=== PATIENT | female | born 1990 | race American Indian/Alaskan Native ===

== ENCOUNTER 2019-07-14 09:33 | Inpatient (IN) | payer MEDICAID ==
[2019-07-14] MEDS ORDERED: LACTATED RINGERS 1,000 ML IV ONE (10:00)
[2019-07-14] MEDS ORDERED: TYLENOL PO ONE (12:07)
[2019-07-14 12:39] LABS: Bacteria,Urine 1+ /HPF (Negative); Bilirubin,Urine NEG (Negative); Blood,Urine SM (Negative); Color,Urine Yellow (Yellow); Protein,Urine <15 mg/dL mg/dL (Negative); Urobilinogen,Urine < 2.0 mg/dL (<2.0)
[2019-07-14] MEDS ORDERED: ZOFRAN IV PRN (13:52)
[2019-07-14] MEDS ORDERED: MYLICON PO PRN (13:52)
[2019-07-14] MEDS ORDERED: AMPICILLIN/NS 2 GM/100 ML 2 GM/100 ML BAG IV ONE (13:52)
[2019-07-14] MEDS ORDERED: AMBIEN PO PRN (13:52)
[2019-07-14] MEDS ORDERED: MILK OF MAGNESIA PO PRN (13:52)
[2019-07-14] MEDS ORDERED: TYLENOL PO PRN ×2 (13:52→14:04)
[2019-07-14] MEDS ORDERED: COLACE PO PRN ×2 (13:52→14:04)
[2019-07-14] MEDS ORDERED: SENOKOT S PO PRN (13:52)
--- NOTE | 2019-07-14 13:59 | History and Physical Report ---
History of Present Illness Date of examination: 07/14/19 Chief complaint: Back pains History of present illness: Pt is a 29yo BF EDC 08/26/19; EGA 33 6/7 weeks presented to [facility] complainin g of back pains. Uterine contractions were not originally picked up on the monitor, but she was having occasional decelerations with a NR tracing. BPP was 8/10. She received care at [facility] since 13 weeks and co-managed by [facility] for Chronic hypertension - on Labetolol 200mg BID, Shortened cervix - on Progesterone 200mg and history of DVT - on Lovenox 40mg. records are available but GBS is unknown. Past History Past Medical History: hypertension Past Surgical History: no surgical history Family/Genetic History: none Social history: no significant social history, single - Obstetrical History Expected Date of Delivery: 08/26/19 Actual Gestation: 33 Week(s) 6 Day(s) : 4 Medications and Allergies Allergies Allergy/AdvReac Type Severity Reaction Status Date / Time No Known Allergies Allergy Verified 07/14/19 09:37 Home Medications Medication Instructions Recorded Confirmed Last Taken Type Labetalol [Labetalol 200mg TAB] 200 mg PO BID 07/14/19 07/14/19 07/14/19 07:30 History 1 Progesterone, Micronized 1 cap VG HS 07/14/19 07/14/19 07/13/19 21:00 History [Progesterone] 1 Active Meds: Active Medications Acetaminophen (Tylenol) 650 mg PO Q4H PRN PRN Reason: Pain MILD(1-3)/Fever >100.5/WING Betamethasone Acet/Betameth SodPhos (Celestone Soluspan) 12 mg IM Q24HR AURELIO Stop: 07/15/19 10:01 Docusate Sodium (Colace) 100 mg PO Q12H PRN PRN Reason: Constipation Lactated Ringer's (Lactated Ringers) 1,000 mls @ 125 mls/hr IV DIRECT AURELIO Ampicillin Sodium (Ampicillin/Ns 1 Gm/50 Ml) 1 gm in 50 mls @ 100 mls/hr IV Q4HR AURELIO; Protocol Ampicillin Sodium (Ampicillin/Ns 2 Gm/100 Ml) 2 gm in 100 mls @ 100 mls/hr IV ONCE ONE; Protocol Stop: 07/14/19 14:51 Magnesium Hydroxide (Milk Of Magnesia) 30 ml PO QHS PRN PRN Reason: Laxative Effect Multivitamins/Iron/Calcium ( Vitamin) 1 each PO QDAY AURELIO Ondansetron HCl (Zofran) 4 mg IV Q6H PRN PRN Reason: Nausea And Vomiting Senna/Docusate Sodium (Senokot S) 2 tab PO Q12H PRN PRN Reason: Laxative Effect Simethicone (Mylicon) 80 mg PO Q6H PRN PRN Reason: Gas pain Zolpidem Tartrate (Ambien) 10 mg PO ONCE PRN PRN Reason: Sleep Review of Systems All systems: negative - Vital Signs Vital signs: Vital Signs Pulse Pulse Ox 104 H 99 07/14/19 09:55 07/14/19 09:55 Temp Pulse Resp BP Pulse Ox 99.4 F 96 H 18 126/66 99 07/14/19 10:05 07/14/19 11:53 07/14/19 10:05 07/14/19 10:02 07/14/19 11:53 - Physical Exam Breasts: Positive: deferred Cardiovascular: Regular rate Lungs: Positive: Clear to auscultation Abdomen: Positive: normal appearance - Obstetrical FHR: category 2 Uterine Contraction Monitor Mode: External Cervical Dilatation: 2.5 Cervical Effacement Percentage: 80 station: -2 Uterine Contraction Pattern: Regular Uterine Tone Measurement Phase: Contraction Uterine Contraction Intensity: Mild Results Result Diagrams: 07/14/19 17:27 All other labs normal. Ultrasound: report reviewed (BPP 8/8; JESUS 12.9) Assessment and Plan - Patient Problems (1) 33 weeks gestation of Onset Date: 07/14/19 Current Visit: Yes Status: Acute Plan to address problem: A: IUP @ 33 6/7 weeks in labor labor Chronic hypertension H/O DVT P: Admit to L&D for IV hydration, IV Magnesium sulfate, Steroids and IV Ampicillin Obtain [facility], NICU consult (2) contractions Onset Date: 07/14/19 Current Visit: Yes Status: Acute (3) PIH ( induced hypertension) Onset Date: 07/14/19 Current Visit: Yes Status: Acute Qualifiers: Trimester: third trimester Qualified Code(s): O13.3 - Gestational [-induced] hypertension without significant proteinuria, third trimester (4) History of DVT (deep vein thrombosis) Onset Date: 07/14/19 Current Visit: Yes Status: Chronic
[2019-07-14] MEDS ORDERED: MAGNESIUM SULFATE 4GM/100ML 4 GM/100 ML BAG IV ONE (14:02)
--- NOTE | 2019-07-14 14:22 | Ultrasound Report ---
ULTRASOUND BIOPHYSICAL PROFILE ULTRASOUND OB LIMITED INDICATION: Nonreactive heart tones TECHNIQUE: Transabdominal ultrasound imaging. COMPARISON: None FINDINGS: breathing movement = 2 Gross body movement = 2 tone = 2 Qualitative amniotic fluid volume = 2 Total biophysical score = 8/8 Amniotic fluid index is 12.9 cm. Presentation is cephalic. heart rate is 153 beats per minute. IMPRESSION: biophysical profile equals 8/8. Signer Name: Dimas Diallo Jr, MD Signed: 07/14/2019 2:18 PM Workstation Name: [id number]
[2019-07-14] MEDS: CELESTONE SOLUSPAN IM SCH (14:47)
[2019-07-14] MEDS ORDERED: MAGNESIUM SULFATE 40GM/1000ML 40 GM/1,000 ML BAG IV SCH (15:00)
[2019-07-14] MEDS: LACTATED RINGERS 1,000 ML IV SCH ×4 (15:08→23:23)
[2019-07-14 18:03] LABS: Basophils % (Auto) 0.1 % (0.0-1.8); Eosinophils % (Auto) 0.2 % (0.0-4.3); Hematocrit 26.6 % (30.3-42.9); Lymphocytes % (Auto) 9.2 % (13.4-35.0); Mean Corpuscular HGB Conc 34 % (30-34); Mean Corpuscular Volume 83 fl (79-97); Monocytes # (Auto) 0.2 K/mm3 (0.0-0.8); Monocytes % (Auto) 2.1 % (0.0-7.3); Platelet Count 277 K/mm3 (140-440); Red Cell Distribution Width 15.5 % (13.2-15.2)
[2019-07-14 18:21] LABS: Alanine Aminotransferase 9 units/L (7-56); Albumin 3.3 g/dL (3.9-5); BUN/Creatinine Ratio 13; Blood Urea Nitrogen 5 mg/dL (7-17); Calcium 8.9 mg/dL (8.4-10.2); Hemolysis Index 1
[2019-07-14] MEDS: AMPICILLIN/NS 1 GM/50 ML 1 GM/50 ML BAG IV SCH ×2 (19:31→23:23)
[2019-07-15] MEDS ORDERED: NARCAN 2 MG/2 ML IV PRN (00:03)
--- NOTE | 2019-07-15 00:03 | Anesthesia Consultation ---
Anesthesia Consult and Med Hx Date of service: 07/15/19 - Airway Anesthetic Teeth Evaluation: Good ROM Head & Neck: Adequate Mental/Hyoid Distance: Adequate Mallampati Class: Class II Intubation Access Assessment: Probably Good - Pulmonary Exam CTA: Yes - Cardiac Exam Cardiac Exam: RRR - Pre-Operative Health Status ASA Pre-Surgery Classification: ASA3 Proposed Anesthetic Plan: Epidural - Pulmonary Hx Asthma: No COPD: No Hx Pneumonia: No - Cardiovascular System Hx Hypertension: Yes - Endocrine Hx End Stage Renal Disease: No - Hematic Hx Anemia: No
[2019-07-15] MEDS: fentaNYL-BUPIV 2 MCG/ML-0.125% 200 MCG/100 ML BAG EPIDURAL SCH ×2 (00:56→09:50)
[2019-07-15] MEDS: AMPICILLIN/NS 1 GM/50 ML 1 GM/50 ML BAG IV SCH ×3 (05:40→14:24)
[2019-07-15] MEDS: LACTATED RINGERS 1,000 ML IV SCH ×2 (08:45→16:42)
--- NOTE | 2019-07-15 09:08 | Progress Note ---
Assessment and Plan - Patient Problems (1) 33 weeks gestation of Onset Date: 07/14/19 Current Visit: Yes Status: Acute Plan to address problem: A: IUP @ 34 0/7 weeks in labor labor - continued despite attempted tocolysis Chronic hypertension - controlled on Labetolol H/O DVT P: Continue with present management Expectant vaginal delivery Obtain [facility], NICU consult (2) contractions Onset Date: 07/14/19 Current Visit: Yes Status: Acute (3) PIH ( induced hypertension) Onset Date: 07/14/19 Current Visit: Yes Status: Acute Qualifiers: Trimester: third trimester Qualified Code(s): O13.3 - Gestational [-induced] hypertension without significant proteinuria, third trimester (4) History of DVT (deep vein thrombosis) Onset Date: 07/14/19 Current Visit: Yes Status: Chronic Subjective - Subjective Date of service: 07/15/19 Principal diagnosis: IUP @ 34 0/7 weeks Interval history: Pt is a 29yo BF EDC 08/26/19; EGA 34 0/7 weeks presented to [facility] complaining of back pains. Uterine contractions were not originally picked up on the monitor, but she was having occasional decelerations with a NR tracing. BPP was 8/10. She received care at [facility] since 13 weeks and co-managed by [facility] for Chronic hypertension - on Labetolol 200mg BID, Shortened cervix - on Progesterone 200mg and history of DVT - on Lovenox 40mg. She was started on IV Magnesium sulfate, IV Ampicillin and IM Steroids, but continued zaheer with decelerations. The IV Magnesium was discontinued and labor progressed. She is now zaheer irregularly with an epidural in place. Patient reports: loss of fluid (AROM), movement normal, contractions, no new complaints, no vaginal bleeding Objective - Vital Signs Vital Signs: Vital Signs - 12hr 07/14/19 07/14/19 07/14/19 21:05 21:10 21:15 Temperature Pulse Rate 100 H 104 H 103 H Respiratory Rate Blood Pressure O2 Sat by Pulse 99 99 100 Oximetry 07/14/19 07/14/19 07/14/19 21:20 21:25 21:30 Temperature Pulse Rate 99 H 110 H 108 H Respiratory Rate Blood Pressure O2 Sat by Pulse 99 100 100 Oximetry 07/14/19 07/14/19 07/14/19 21:35 21:40 21:45 Temperature Pulse Rate 99 H 104 H 112 H Respiratory Rate Blood Pressure O2 Sat by Pulse 100 100 100 Oximetry 07/14/19 07/14/19 07/14/19 21:50 21:54 21:55 Temperature Pulse Rate 104 H 98 H 100 H Respiratory Rate Blood Pressure 141/67 O2 Sat by Pulse 100 99 Oximetry 07/14/19 07/14/19 07/14/19 22:00 22:05 22:10 Temperature Pulse Rate 95 H 96 H 91 H Respiratory Rate Blood Pressure O2 Sat by Pulse 99 100 100 Oximetry 07/14/19 07/14/19 07/14/19 22:15 22:20 22:25 Temperature Pulse Rate 97 H 98 H 110 H Respiratory Rate Blood Pressure O2 Sat by Pulse 100 99 99 Oximetry 07/14/19 07/14/19 07/14/19 22:30 22:35 22:40 Temperature Pulse Rate 97 H 103 H 112 H Respiratory Rate Blood Pressure O2 Sat by Pulse 100 99 99 Oximetry 07/14/19 07/14/19 07/14/19 22:45 22:50 22:55 Temperature Pulse Rate 104 H 106 H 96 H Respiratory Rate Blood Pressure O2 Sat by Pulse 100 99 100 Oximetry 07/14/19 07/14/19 07/14/19 23:00 23:05 23:10 Temperature Pulse Rate 97 H 99 H 111 H Respiratory Rate Blood Pressure O2 Sat by Pulse 100 100 100 Oximetry 07/14/19 07/14/19 07/14/19 23:15 23:20 23:25 Temperature Pulse Rate 115 H 111 H 113 H Respiratory Rate Blood Pressure O2 Sat by Pulse 100 100 100 Oximetry 07/14/19 07/14/19 07/14/19 23:30 23:35 23:40 Temperature Pulse Rate 111 H 109 H 124 H Respiratory Rate Blood Pressure O2 Sat by Pulse 99 100 100 Oximetry 07/14/19 07/14/19 07/14/19 23:42 23:45 23:50 Temperature Pulse Rate 111 H 112 H 89 Respiratory Rate Blood Pressure 196/100 O2 Sat by Pulse 98 98 Oximetry 07/14/19 07/14/19 07/14/19 23:55 23:56 23:59 Temperature Pulse Rate 122 H 116 H 121 H Respiratory Rate Blood Pressure 166/95 168/92 156/76 O2 Sat by Pulse 99 Oximetry 07/15/19 07/15/19 07/15/19 00:00 00:01 00:05 Temperature 97.8 F Pulse Rate 130 H 130 H 109 H Respiratory 18 Rate Blood Pressure 129/82 O2 Sat by Pulse 98 98 Oximetry 07/15/19 07/15/19 07/15/19 00:10 00:15 00:20 Temperature Pulse Rate 109 H 115 H 105 H Respiratory Rate Blood Pressure O2 Sat by Pulse 99 100 100 Oximetry 07/15/19 07/15/19 07/15/19 00:25 00:30 00:35 Temperature Pulse Rate 109 H 108 H 110 H Respiratory Rate Blood Pressure O2 Sat by Pulse 100 100 100 Oximetry 07/15/19 07/15/19 07/15/19 00:40 00:45 00:50 Temperature Pulse Rate 118 H 103 H 106 H Respiratory Rate Blood Pressure O2 Sat by Pulse 99 100 100 Oximetry 07/15/19 07/15/19 07/15/19 00:52 00:55 01:00 Temperature Pulse Rate 104 H 100 H 101 H Respiratory Rate Blood Pressure 122/56 O2 Sat by Pulse 100 100 Oximetry 07/15/19 07/15/19 07/15/19 01:05 01:07 01:10 Temperature Pulse Rate 92 H 99 H 103 H Respiratory Rate Blood Pressure 119/59 O2 Sat by Pulse 100 100 Oximetry 07/15/19 07/15/19 07/15/19 01:15 01:20 01:22 Temperature Pulse Rate 101 H 101 H 100 H Respiratory Rate Blood Pressure 119/59 O2 Sat by Pulse 100 100 Oximetry 07/15/19 07/15/19 07/15/19 01:25 01:30 01:35 Temperature Pulse Rate 98 H 108 H 98 H Respiratory Rate Blood Pressure O2 Sat by Pulse 100 100 100 Oximetry 07/15/19 07/15/19 07/15/19 01:37 01:40 01:45 Temperature Pulse Rate 112 H 96 H 103 H Respiratory Rate Blood Pressure 115/56 O2 Sat by Pulse 100 100 Oximetry 07/15/19 07/15/19 07/15/19 01:50 01:53 01:55 Temperature Pulse Rate 102 H 101 H 112 H Respiratory Rate Blood Pressure 116/56 O2 Sat by Pulse 99 99 Oximetry 07/15/19 07/15/19 07/15/19 02:00 02:05 02:08 Temperature Pulse Rate 102 H 101 H 101 H Respiratory Rate Blood Pressure 110/55 O2 Sat by Pulse 100 99 Oximetry 07/15/19 07/15/19 07/15/19 02:10 02:15 02:20 Temperature Pulse Rate 95 H 105 H 110 H Respiratory Rate Blood Pressure O2 Sat by Pulse 99 100 98 Oximetry 07/15/19 07/15/19 07/15/19 02:22 02:25 02:30 Temperature Pulse Rate 100 H 113 H 98 H Respiratory Rate Blood Pressure 115/55 O2 Sat by Pulse 100 100 Oximetry 07/15/19 07/15/19 07/15/19 02:35 02:37 02:40 Temperature Pulse Rate 94 H 100 H 101 H Respiratory Rate Blood Pressure 111/53 O2 Sat by Pulse 99 100 Oximetry 07/15/19 07/15/19 07/15/19 02:45 02:50 02:52 Temperature Pulse Rate 97 H 96 H 109 H Respiratory Rate Blood Pressure 109/54 O2 Sat by Pulse 100 100 Oximetry 07/15/19 07/15/19 07/15/19 02:55 03:00 03:05 Temperature Pulse Rate 99 H 109 H 100 H Respiratory Rate Blood Pressure O2 Sat by Pulse 100 100 100 Oximetry 07/15/19 07/15/19 07/15/19 03:07 03:10 03:15 Temperature Pulse Rate 102 H 97 H 114 H Respiratory Rate Blood Pressure 110/53 O2 Sat by Pulse 100 100 Oximetry 07/15/19 07/15/19 07/15/19 03:20 03:23 03:25 Temperature Pulse Rate 117 H 130 H 105 H Respiratory Rate Blood Pressure 114/61 O2 Sat by Pulse 99 100 Oximetry 07/15/19 07/15/19 07/15/19 03:30 03:35 03:37 Temperature Pulse Rate 122 H 101 H 107 H Respiratory Rate Blood Pressure 119/56 O2 Sat by Pulse 99 100 Oximetry 07/15/19 07/15/19 07/15/19 03:40 03:45 03:50 Temperature Pulse Rate 100 H 104 H 96 H Respiratory Rate Blood Pressure O2 Sat by Pulse 100 100 100 Oximetry 07/15/19 07/15/19 07/15/19 03:52 03:55 04:00 Temperature 98.9 F Pulse Rate 105 H 101 H 101 H Respiratory 18 Rate Blood Pressure 130/61 O2 Sat by Pulse 100 100 Oximetry 07/15/19 07/15/19 07/15/19 04:05 04:07 04:10 Temperature Pulse Rate 114 H 96 H 100 H Respiratory Rate Blood Pressure 129/60 O2 Sat by Pulse 100 100 Oximetry 07/15/19 07/15/19 07/15/19 04:15 04:20 04:23 Temperature Pulse Rate 102 H 126 H 98 H Respiratory Rate Blood Pressure 138/64 O2 Sat by Pulse 100 100 Oximetry 07/15/19 07/15/19 07/15/19 04:25 04:30 04:35 Temperature Pulse Rate 119 H 110 H 103 H Respiratory Rate Blood Pressure O2 Sat by Pulse 100 100 100 Oximetry 07/15/19 07/15/19 07/15/19 04:37 04:40 04:45 Temperature Pulse Rate 112 H 119 H 105 H Respiratory Rate Blood Pressure 145/65 O2 Sat by Pulse 100 100 Oximetry 07/15/19 07/15/19 07/15/19 04:50 04:52 04:55 Temperature Pulse Rate 108 H 111 H 102 H Respiratory Rate Blood Pressure 136/63 O2 Sat by Pulse 100 100 Oximetry 07/15/19 07/15/19 07/15/19 05:00 05:05 05:07 Temperature Pulse Rate 113 H 113 H 113 H Respiratory Rate Blood Pressure 144/65 O2 Sat by Pulse 100 100 Oximetry 07/15/19 07/15/19 07/15/19 05:10 05:15 05:20 Temperature Pulse Rate 111 H 119 H 111 H Respiratory Rate Blood Pressure O2 Sat by Pulse 99 99 99 Oximetry 07/15/19 07/15/19 07/15/19 05:23 05:25 05:30 Temperature Pulse Rate 107 H 111 H 105 H Respiratory Rate Blood Pressure 139/71 O2 Sat by Pulse 98 98 Oximetry 07/15/19 07/15/19 07/15/19 05:35 05:37 05:40 Temperature Pulse Rate 106 H 112 H 109 H Respiratory Rate Blood Pressure 130/63 O2 Sat by Pulse 97 98 Oximetry 07/15/19 07/15/19 07/15/19 05:45 05:50 05:52 Temperature Pulse Rate 106 H 109 H 109 H Respiratory Rate Blood Pressure 129/62 O2 Sat by Pulse 99 98 Oximetry 07/15/19 07/15/19 07/15/19 05:55 06:00 06:05 Temperature Pulse Rate 115 H 110 H 113 H Respiratory Rate Blood Pressure O2 Sat by Pulse 97 98 98 Oximetry 07/15/19 07/15/19 07/15/19 06:07 06:10 06:15 Temperature Pulse Rate 113 H 108 H 107 H Respiratory Rate Blood Pressure 129/65 O2 Sat by Pulse 99 97 Oximetry 07/15/19 07/15/19 07/15/19 06:20 06:23 06:25 Temperature Pulse Rate 112 H 112 H 122 H Respiratory Rate Blood Pressure 142/66 O2 Sat by Pulse 99 99 Oximetry 07/15/19 07/15/19 07/15/19 06:30 06:35 06:37 Temperature Pulse Rate 119 H 110 H 114 H Respiratory Rate Blood Pressure 140/72 O2 Sat by Pulse 98 99 Oximetry 07/15/19 07/15/19 07/15/19 06:40 06:45 06:50 Temperature Pulse Rate 112 H 116 H 114 H Respiratory Rate Blood Pressure O2 Sat by Pulse 100 99 99 Oximetry 07/15/19 07/15/19 07/15/19 06:52 06:55 07:00 Temperature Pulse Rate 116 H 115 H 102 H Respiratory Rate Blood Pressure 133/68 O2 Sat by Pulse 100 99 Oximetry 07/15/19 07/15/19 07/15/19 07:05 07:07 07:10 Temperature Pulse Rate 116 H 112 H 113 H Respiratory Rate Blood Pressure 133/72 O2 Sat by Pulse 99 99 Oximetry 07/15/19 07/15/19 07/15/19 07:15 07:20 07:22 Temperature Pulse Rate 113 H 111 H 112 H Respiratory Rate Blood Pressure 136/68 O2 Sat by Pulse 98 98 Oximetry 07/15/19 07/15/19 07/15/19 07:25 07:30 07:35 Temperature Pulse Rate 113 H 116 H 124 H Respiratory Rate Blood Pressure O2 Sat by Pulse 97 97 99 Oximetry 07/15/19 07/15/19 07/15/19 07:40 07:45 07:50 Temperature Pulse Rate 119 H 123 H 119 H Respiratory Rate Blood Pressure O2 Sat by Pulse 99 99 99 Oximetry 07/15/19 07/15/19 07/15/19 07:55 08:00 08:05 Temperature Pulse Rate 115 H 112 H 124 H Respiratory Rate Blood Pressure O2 Sat by Pulse 99 100 99 Oximetry 07/15/19 07/15/19 07/15/19 08:09 08:10 08:15 Temperature 98.3 F Pulse Rate 114 H 109 H Respiratory 24 Rate Blood Pressure O2 Sat by Pulse 99 100 Oximetry 07/15/19 07/15/19 07/15/19 08:20 08:25 08:30 Temperature Pulse Rate 107 H 108 H 133 H Respiratory Rate Blood Pressure 132/66 O2 Sat by Pulse 100 100 100 Oximetry 07/15/19 07/15/19 07/15/19 08:35 08:40 08:41 Temperature Pulse Rate 98 H 98 H 97 H Respiratory Rate Blood Pressure 110/55 O2 Sat by Pulse 100 100 Oximetry 07/15/19 07/15/19 07/15/19 08:45 08:50 08:55 Temperature Pulse Rate 98 H 97 H 108 H Respiratory Rate Blood Pressure O2 Sat by Pulse 100 100 100 Oximetry 07/15/19 09:00 Temperature Pulse Rate 127 H Respiratory Rate Blood Pressure O2 Sat by Pulse 100 Oximetry - Exam Abdomen: Present: normal appearance, soft Uterus: Present: normal FHR: category 1 Uterine Contraction Monitor Mode: External Cervical Dilatation: 4.5 Cervical Effacement Percentage: 80 station: -2 Uterine Contraction Pattern: Irregular Uterine Tone Measurement Phase: Contraction Uterine Contraction Intensity: Mild - Labs Labs: Abnormal Labs 07/14/19 07/14/19 07/14/19 17:27 17:27 17:27 RBC 3.20 L Hgb 9.0 L Hct 26.6 L RDW 15.5 H Lymph % (Auto) 9.2 L Lymph # 1.0 L Seg Neutrophils % 88.4 H Seg Neutrophils # 9.3 H Sodium 134 L Carbon Dioxide 20 L BUN 5 L Creatinine 0.4 L Magnesium 3.50 H Albumin 3.3 L Laboratory Results - last 24 hr 07/14/19 07/14/19 07/14/19 11:20 12:05 17:27 WBC 10.5 RBC 3.20 L Hgb 9.0 L Hct 26.6 L MCV 83 MCH 28 MCHC 34 RDW 15.5 H Plt Count 277 Lymph % (Auto) 9.2 L Pender % (Auto) 2.1 Eos % (Auto) 0.2 Baso % (Auto) 0.1 Lymph # 1.0 L Pender # 0.2 Eos # 0.0 Baso # 0.0 Seg Neutrophils % 88.4 H Seg Neutrophils # 9.3 H Sodium Potassium Chloride Carbon Dioxide Anion Gap BUN Creatinine Estimated GFR BUN/Creatinine Ratio Glucose Calcium Magnesium Total Bilirubin AST ALT Alkaline Phosphatase Total Protein Albumin Albumin/Globulin Ratio Urine Color Yellow Urine Turbidity Clear Urine pH 6.0 Ur Specific Brandywine 1.009 Urine Protein <15 mg/dl Urine Glucose (UA) Neg Urine Ketones Neg Urine Blood Sm Urine Nitrite Neg Urine Bilirubin Neg Urine Urobilinogen < 2.0 Ur Leukocyte Esterase Sm Urine WBC (Auto) 1.0 Urine RBC (Auto) 2.0 U Epithel Cells (Auto) 2.0 Urine Bacteria (Auto) 1+ Fibronectin Negative 07/14/19 07/14/19 17:27 17:27 WBC RBC Hgb Hct MCV MCH MCHC RDW Plt Count Lymph % (Auto) Pender % (Auto) Eos % (Auto) Baso % (Auto) Lymph # Pender # Eos # Baso # Seg Neutrophils % Seg Neutrophils # Sodium 134 L Potassium 4.1 Chloride 99.5 Carbon Dioxide 20 L Anion Gap 19 BUN 5 L Creatinine 0.4 L Estimated GFR > 60 BUN/Creatinine Ratio 13 Glucose 79 Calcium 8.9 Magnesium 3.50 H Total Bilirubin 0.40 AST 16 ALT 9 Alkaline Phosphatase 88 Total Protein 7.1 Albumin 3.3 L Albumin/Globulin Ratio 0.9 Urine Color Urine Turbidity Urine pH Ur Specific Brandywine Urine Protein Urine Glucose (UA) Urine Ketones Urine Blood Urine Nitrite Urine Bilirubin Urine Urobilinogen Ur Leukocyte Esterase Urine WBC (Auto) Urine RBC (Auto) U Epithel Cells (Auto) Urine Bacteria (Auto) Fibronectin
[2019-07-15] MEDS ORDERED: PITOCin/NS 30 UNIT/500ML 30 UNITS/500 ML BAG IV SCH (10:00)
[2019-07-15] MEDS ORDERED: PRENATAL VITAMIN PO SCH (10:00)
[2019-07-15] MEDS: PRENATAL VITAMIN PO SCH (12:01)
[2019-07-15] MEDS: CELESTONE SOLUSPAN IM SCH (14:36)
[2019-07-15] MEDS ORDERED: PEPCID IV SCH ×2 (16:48→16:51)
[2019-07-15] MEDS ORDERED: BICITRA PO SCH ×2 (16:48→16:51)
[2019-07-15] MEDS ORDERED: REGLAN IV ONE ×2 (16:48→16:51)
[2019-07-15] MEDS ORDERED: XYLOCAINE 2%/ EPI 1:200,000 INFILTRATI ONE (16:50)
[2019-07-15] MEDS ORDERED: DEXMEDETOMIDINE IV ONE (16:50)
[2019-07-15] MEDS ORDERED: REGLAN ONE (16:51)
[2019-07-15] MEDS ORDERED: PITOCin/NS 20 UNIT/1000ML DRIP 20,000 MILLIUNITS/1,000 ML BAG IV ONE (16:51)
[2019-07-15] MEDS ORDERED: BICITRA ONE (16:51)
[2019-07-15] MEDS ORDERED: PEPCID IV ONE (16:51)
--- NOTE | 2019-07-15 16:51 | Anesthesia Day of Surgery ---
Anesthesia Day of Surgery - Day of Surgery Patient Examined: Yes Patient H&P Reviewed: Yes Patient is NPO: Yes
[2019-07-15] MEDS ORDERED: NARCAN 0.4 MG/1 ML IV PRN ×2 (16:52→17:56)
[2019-07-15] MEDS ORDERED: PHENERGAN PO PRN (16:52)
[2019-07-15] MEDS ORDERED: ZOFRAN IV PRN (16:52)
[2019-07-15] MEDS ORDERED: PHENERGAN PR PRN (16:52)
[2019-07-15] MEDS ORDERED: ANCEF/STERILE WATER 2 GM/20 ML 2 GM/20 ML SYRINGE IV ONE (16:52)
[2019-07-15] MEDS ORDERED: DILAUDID IV PRN ×2 (16:52)
[2019-07-15] MEDS ORDERED: PITOCin/NS 20 UNIT/1000ML DRIP 20 UNITS/1,000 ML BAG IV SCH ×3 (17:00→18:00)
[2019-07-15] MEDS ORDERED: SODIUM CHLORIDE FLUSH SYRINGE 10 ML IV SCH (17:00)
[2019-07-15] MEDS ORDERED: LACTATED RINGERS 1,000 ML IV SCH ×2 (17:00)
[2019-07-15] MEDS ORDERED: ANCEF/STERILE WATER 2 GM/20 ML 2 GM/20 ML SYRINGE IV NR (17:00)
[2019-07-15] MEDS ORDERED: NACL 0.9% IR ONE (17:14)
[2019-07-15] MEDS ORDERED: WATER FOR IRRIG STERILE IR ONE (17:14)
[2019-07-15] MEDS ORDERED: ZOFRAN ONE (17:17)
[2019-07-15] MEDS ORDERED: DILAUDID ONE (17:28)
[2019-07-15] MEDS ORDERED: TUCKS PAD TP PRN (17:56)
[2019-07-15] MEDS ORDERED: SENOKOT PO PRN (17:56)
[2019-07-15] MEDS ORDERED: LANSINOH TP PRN (17:56)
[2019-07-15] MEDS ORDERED: IBUPROFEN PO PRN (17:56)
[2019-07-15] MEDS ORDERED: NORCO 5/325 PO PRN (17:56)
[2019-07-15] MEDS ORDERED: D5LR 1,000 ML IV SCH (18:00)
[2019-07-15] MEDS ORDERED: SODIUM CHLORIDE FLUSH SYRINGE 10 ML IV NR (18:00)
--- NOTE | 2019-07-15 18:11 | Post Anesthesia Evaluation ---
- Post Anesthesia Evaluation Patient Participated: Yes Airway Patent: Yes Stable Respiratory Function: Yes Nausea/Vomiting: No Temp > 96.8F: Yes Pain Manageable: Yes Adequeate Hydration: Yes Anesthesia Complications: No Block Receding Appropriately: Yes Patient on Ventilator: No
--- NOTE | 2019-07-15 18:35 | Operative Report ---
Operative Report Operative Report: Date of procedure: 07/15/2019 Pre-operative diagnosis: 1. Intrauterine at 34 0/7 weeks 2. Prete rm labor 3. Chronic hypertension 4. Non-reassuring surveillance Post-operative diagnosis: Same Procedure name(s): Primary low transverse section Surgeon: Dimas Samson MD Optical Systems Engineer: None Anesthesia: Spinal anesthesia by Jay Crockett CRNA EBL: 600 mL's Findings: A 2127 g female Apgars 8 at 1 minute and 9 at 5 minutes. Clear amniotic fluid. Normal uterus. Normal tubes and ovaries bilaterally. Procedure: After the patient was prepped and draped in usual sterile fashion, and after satisfactory level of epidural anesthesia was obtained, the skin knife was used to make a transverse skin incision. The incision was excised down to layer of the fascia, which was nicked in the midline and extended laterally using the Bovie cautery. The rectus muscles were dissected off the rectus fascia both superiorly and inferiorly. The rectus bellies in the midline, and the peritoneum was entered under direct visualization. The peritoneal incision was extended superiorly and inferiorly. A bladder flap was created and the bladder blade was then placed. The uterus was scored in a curvilinear linear fashion, entered in the midline revealing clear amniotic fluid. The 's head was delivered onto the surgical field, and the oropharynx and nasopharynx were bulb suctioned. The rest of the 's body was delivered, cord was doubly clamped and cut and the infant was handed to the waiting respiratory team. Cord blood was then obtained. The placenta was manually removed from the uterus, and the uterus removed from its normal anatomical position. After gentle uterine lavage, the incision was inspected and found to be without extensions. It was then closed in 2 layers using 0 Vicryl suture in a running interlocking fashion, the second layer imbricating the first. After good hemostasis was achieved, copious amounts or irrigation was performed, and the gutters were suctioned free of blood and blood clots. The Tisseel sealant was sprayed across the uterine incision, and excellent hemostasis was assured. The uterus was then returned to its normal anatomical position, and after excellent hemostasis assured, the peritoneum was re- approximated using 3-0 Vicryl suture in a running interlocking fashion, and then the rectus muscles were re-approximated using 3-0 Vicryl suture in a [id number] configuration. The fascia was then re-approximated using 0 Vicryl suture in running interlocking fashion. The subcutaneous layer was made hemostatic using Bovie cautery, and the skin edges re-approximated using 4-0 Vicryl suture in a sub-cuticular fashion. Patient tolerated the procedure well was transported to recovery in stable condition.
[2019-07-16] MEDS: TORADOL IV PRN ×2 (00:20→06:55)
[2019-07-16] MEDS: ANCEF/NS 1 GM/50 ML 1 GM/50 ML BAG IV SCH ×2 (00:29→08:48)
[2019-07-16] MEDS: NORMODYNE PO SCH ×3 (00:43→22:28)
[2019-07-16] MEDS ORDERED: BOOSTRIX IM ONE (06:00)
[2019-07-16] MEDS ORDERED: M-M-R II VACCINE SUB-Q ONE (06:00)
[2019-07-16 06:18] LABS: Hematocrit 18.4 % (30.3-42.9)
--- NOTE | 2019-07-16 12:31 | Progress Note ---
Assessment and Plan - Patient Problems (1) 33 weeks gestation of Onset Date: 07/14/19 Current Visit: Yes Status: Resolved (2) contractions Onset Date: 07/14/19 Current Visit: Yes Status: Resolved (3) PIH ( induced hypertension) Onset Date: 07/14/19 Current Visit: Yes Status: Resolved Qualifiers: Trimester: third trimester Qualified Code(s): O13.3 - Gestational [-induced] hypertension without significant proteinuria, third trimester (4) History of DVT (deep vein thrombosis) Onset Date: 07/14/19 Current Visit: Yes Status: Chronic (5) Status post Onset Date: 07/16/19 Current Visit: Yes Status: Resolved Plan to address problem: A: S/P C Section - POD #1 Doing well Asymptomatic anemia - stable Chronic hypertension - improved P: Continue RPOC Repeat H/H in AM Anticipate discharge in 24-48hrs Subjective - Subjective Date of service: 07/16/19 Principal diagnosis: s/p C Section - POD #1 Interval history: Pt is feeling well without complaints. Bleeding improved. Denies dizziness, S OB or DIAZ. Patient reports: appetite normal, voiding normally, pain well controlled, flatus, ambulating normally, no dizzy ambulation, no nauseated [place]: doing well, in NICU Objective - Vital Signs Latest vital signs: Vital Signs Temp Pulse Resp BP BP Pulse Ox 07/16/19 07:40 98.1 F 83 20 124/71 98 07/16/19 01:28 98.1 F 81 18 137/72 98 07/16/19 00:43 81 137/72 07/16/19 00:19 84 97 07/15/19 19:56 98.6 F 85 18 115/65 99 07/15/19 19:05 97.8 F 79 18 110/60 100 07/15/19 19:00 91 H 18 93/67 100 07/15/19 18:45 76 18 102/58 100 07/15/19 18:30 78 16 99/54 100 07/15/19 18:15 83 16 102/52 100 07/15/19 18:10 80 18 100/52 100 07/15/19 18:08 98.2 F 80 18 101/54 100 07/15/19 16:50 135 H 100 07/15/19 16:45 101 H 100 07/15/19 16:40 106 H 147/79 100 07/15/19 16:35 98 H 100 07/15/19 16:30 104 H 100 07/15/19 16:25 98 H 100 07/15/19 16:20 102 H 100 07/15/19 16:15 102 H 100 07/15/19 16:11 101 H 137/66 07/15/19 16:10 100 H 100 07/15/19 16:05 104 H 100 07/15/19 16:00 94 H 100 07/15/19 15:55 96 H 100 07/15/19 15:50 99 H 100 07/15/19 15:45 109 H 100 07/15/19 15:41 105 H 123/59 07/15/19 15:40 105 H 100 07/15/19 15:35 102 H 100 07/15/19 15:30 103 H 100 07/15/19 15:25 98 H 100 07/15/19 15:20 100 H 100 07/15/19 15:15 111 H 100 07/15/19 15:11 114 H 134/65 07/15/19 15:10 110 H 100 07/15/19 15:05 111 H 100 07/15/19 15:00 103 H 100 07/15/19 14:55 100 H 100 07/15/19 14:50 104 H 100 07/15/19 14:45 105 H 100 07/15/19 14:44 99.8 F H 22 07/15/19 14:41 104 H 133/66 07/15/19 14:40 101 H 100 07/15/19 14:35 100 H 100 07/15/19 14:30 107 H 100 07/15/19 14:25 107 H 100 07/15/19 14:20 106 H 100 07/15/19 14:15 110 H 100 07/15/19 14:10 104 H 133/71 100 07/15/19 14:05 107 H 100 07/15/19 14:00 98 H 100 07/15/19 13:55 96 H 99 07/15/19 13:50 108 H 100 07/15/19 13:45 108 H 100 07/15/19 13:41 131 H 124/57 07/15/19 13:40 112 H 100 07/15/19 13:35 115 H 100 07/15/19 13:30 95 H 100 07/15/19 13:25 111 H 100 07/15/19 13:20 107 H 100 07/15/19 13:15 93 H 100 07/15/19 13:10 107 H 100 07/15/19 13:05 96 H 100 07/15/19 13:00 92 H 100 07/15/19 12:55 102 H 100 07/15/19 12:50 106 H 100 07/15/19 12:45 98 H 100 07/15/19 12:41 99.6 F 24 07/15/19 12:40 101 H 100 07/15/19 12:35 96 H 100 Intake and Output 07/15/19 07/16/19 07/16/19 22:59 06:59 14:59 Intake Total 2374.25 50 240 Output Total 1070 1000 1750 Balance 1304.25 -950 -1510 Intake: IV 2374.25 50 ANCEF/NS 1 GM/50 ML 1 gm 50 In 50 ml @ 100 mls/hr IV Q8H AURELIO Rx#:[id number] Lactated Ringers 1,000 ml 993.75 @ 125 mls/hr IV DIRECT AURELIO Rx#:[id number] PITOCin/NS 30 UNIT/500ML 30.5 30 units In 500 ml @ 4 MILLIUNITS/MIN 4 mls/hr IV TITR AURELIO Rx#:[id number] Oral 240 Output: Urine 1070 1000 1750 Indwelling Catheter 900 1000 Void 1750 Other: Total, Intake Amount 240 Total, Output Amount 900 1000 600 # Voids Void 1 Estimated Blood Loss 600 - Exam Breasts: Present: deferred Abdomen: Present: normal appearance, soft Uterus: Present: normal, firm, fundal height below umbilicus Extremities: Present: normal Incision: Present: normal, dry, intact, dressed - Labs Labs: Abnormal lab results 07/16/19 Range/Units 05:36 Hgb 6.0 L D (10.1-14.3) gm/dl Hct 18.4 L* D (30.3-42.9) % Laboratory Tests 07/14/19 07/14/19 07/14/19 11:20 12:05 17:27 WBC 10.5 RBC 3.20 L Hgb 9.0 L Hct 26.6 L MCV 83 MCH 28 MCHC 34 RDW 15.5 H Plt Count 277 Lymph % (Auto) 9.2 L Bates % (Auto) 2.1 Eos % (Auto) 0.2 Baso % (Auto) 0.1 Lymph # 1.0 L Bates # 0.2 Eos # 0.0 Baso # 0.0 Seg Neutrophils % 88.4 H Seg Neutrophils # 9.3 H Sodium Potassium Chloride Carbon Dioxide Anion Gap BUN Creatinine Estimated GFR BUN/Creatinine Ratio Glucose Calcium Magnesium Total Bilirubin AST ALT Alkaline Phosphatase Total Protein Albumin Albumin/Globulin Ratio Urine Color Yellow Urine Turbidity Clear Urine pH 6.0 Ur Specific [place]sey 1.009 Urine Protein <15 mg/dl Urine Glucose (UA) Neg Urine Ketones Neg Urine Blood Sm Urine Nitrite Neg Urine Bilirubin Neg Urine Urobilinogen < 2.0 Ur Leukocyte Esterase Sm Urine WBC (Auto) 1.0 Urine RBC (Auto) 2.0 U Epithel Cells (Auto) 2.0 Urine Bacteria (Auto) 1+ RPR Hep Bs Antigen Fibronectin Negative 07/14/19 07/14/19 07/15/19 17:27 17:27 10:05 WBC RBC Hgb Hct MCV MCH MCHC RDW Plt Count Lymph % (Auto) Bates % (Auto) Eos % (Auto) Baso % (Auto) Lymph # Bates # Eos # Baso # Seg Neutrophils % Seg Neutrophils # Sodium 134 L Potassium 4.1 Chloride 99.5 Carbon Dioxide 20 L Anion Gap 19 BUN 5 L Creatinine 0.4 L Estimated GFR > 60 BUN/Creatinine Ratio 13 Glucose 79 Calcium 8.9 Magnesium 3.50 H Total Bilirubin 0.40 AST 16 ALT 9 Alkaline Phosphatase 88 Total Protein 7.1 Albumin 3.3 L Albumin/Globulin Ratio 0.9 Urine Color Urine Turbidity Urine pH Ur Specific Rumsey Urine Protein Urine Glucose (UA) Urine Ketones Urine Blood Urine Nitrite Urine Bilirubin Urine Urobilinogen Ur Leukocyte Esterase Urine WBC (Auto) Urine RBC (Auto) U Epithel Cells (Auto) Urine Bacteria (Auto) RPR Hep Bs Antigen Non-reactive Fibronectin 07/15/19 07/16/19 10:05 05:36 WBC RBC Hgb 6.0 L D Hct 18.4 L* D MCV MCH MCHC RDW Plt Count Lymph % (Auto) Bates % (Auto) Eos % (Auto) Baso % (Auto) Lymph # Bates # Eos # Baso # Seg Neutrophils % Seg Neutrophils # Sodium Potassium Chloride Carbon Dioxide Anion Gap BUN Creatinine Estimated GFR BUN/Creatinine Ratio Glucose Calcium Magnesium Total Bilirubin AST ALT Alkaline Phosphatase Total Protein Albumin Albumin/Globulin Ratio Urine Color Urine Turbidity Urine pH Ur Specific [place]sey Urine Protein Urine Glucose (UA) Urine Ketones Urine Blood Urine Nitrite Urine Bilirubin Urine Urobilinogen Ur Leukocyte Esterase Urine WBC (Auto) Urine RBC (Auto) U Epithel Cells (Auto) Urine Bacteria (Auto) RPR Nonreactive Hep Bs Antigen Fibronectin
[2019-07-16] MEDS: PRENATAL VITAMIN PO SCH (14:46)
[2019-07-16] MEDS: FEOSOL PO SCH (14:46)
[2019-07-16] MEDS: LOVENOX SUB-Q SCH (14:55)
[2019-07-16] MEDS: PERCOCET 5/325 PO PRN (22:28)
[2019-07-17 08:32] LABS: Hemoglobin 6.3 gm/dl (10.1-14.3)
[2019-07-17 08:38] LABS: Hematocrit 19.6 % (30.3-42.9)
[2019-07-17] MEDS: FEOSOL PO SCH (09:45)
[2019-07-17] MEDS: PRENATAL VITAMIN PO SCH (09:46)
[2019-07-17] MEDS: PERCOCET 5/325 PO PRN (09:47)
[2019-07-17] MEDS: NORMODYNE PO SCH (09:54)
[2019-07-17] MEDS: LOVENOX SUB-Q SCH (09:55)
[2019-07-17 12:26] VITALS: BP 122/72
--- NOTE | 2019-07-17 12:34 | Progress Note ---
Assessment and Plan - Patient Problems (1) 33 weeks gestation of Onset Date: 07/14/19 Current Visit: Yes Status: Resolved (2) contractions Onset Date: 07/14/19 Current Visit: Yes Status: Resolved (3) PIH ( induced hypertension) Onset Date: 07/14/19 Current Visit: Yes Status: Resolved Qualifiers: Trimester: third trimester Qualified Code(s): O13.3 - Gestational [-induced] hypertension without significant proteinuria, third trimester (4) History of DVT (deep vein thrombosis) Onset Date: 07/14/19 Current Visit: Yes Status: Chronic (5) Status post Onset Date: 07/16/19 Current Visit: Yes Status: Resolved Plan to address problem: A: S/P C Section - POD #2 Doing well Asymptomatic anemia - stable Chronic hypertension - improved P: May go home today. Subjective - Subjective Date of service: 07/17/19 Principal diagnosis: s/p C Section - POD #2 Interval history: Pt is feeling well without complaints. Denies dizziness, SOB or DIAZ. She is tolerating a reg diet without nausea or vomiting, ambulating and voiding without difficulty, and wants to go home today. Patient reports: appetite normal, voiding normally, pain well controlled, flatus, ambulating normally, no dizzy ambulation, no nauseated [place]: doing well, in NICU Objective - Vital Signs Latest vital signs: Vital Signs Temp Pulse Resp BP Pulse Ox 07/17/19 11:54 98.6 F 80 18 122/72 96 07/17/19 09:47 20 07/17/19 07:21 98.1 F 75 18 141/63 99 07/17/19 00:29 98.0 F 74 20 114/61 98 07/16/19 22:28 89 141/76 07/16/19 22:19 98.3 F 89 18 141/76 98 07/16/19 15:34 98.0 F 101 H 16 129/71 100 Intake and Output 07/16/19 07/17/19 07/17/19 22:59 06:59 14:59 Intake Total 480 360 840 Balance 480 360 840 Intake: Oral 480 360 120 Intake, Free Water 720 Other: Total, Intake Amount 240 120 120 # Voids Void 1 1 2 - Exam Abdomen: Present: normal appearance, soft Uterus: Present: normal, firm, fundal height below umbilicus Extremities: Present: normal Incision: Present: normal, dry, intact - Labs Labs: Abnormal lab results 07/17/19 Range/Units 08:14 Hgb 6.3 L (10.1-14.3) gm/dl Hct 19.6 L* (30.3-42.9) %
--- NOTE | 2019-07-17 12:51 | Discharge Summary ---
Providers - Providers Date of Admission: 07/14/19 13:52 Date of discharge: 07/17/19 Attending physician: DONNA SHERWOOD 07/14/19 18:16 Consult to Physician [CONS] Urgent Comment: Consulting Provider: PAVEL HERNANDES Physician Instructions: Reason For Exam: IUP @ 33 6/7 weeks Primary care physician: DONNA SHERWOOD Hospitalization Reason for admission: IUP - , labor, other (Chronic hypertension) Delivery: Procedure: section, primary low transverse Episiotomy: none Laceration: none Incision: normal, dry, intact Other procedures: none complications: none Discharge diagnosis: delivery baby: female Hospital course: Pt is a 29yo BF EDC 08/26/19; EGA 34 0/7 weeks who presented to [facility] complaining of back pains. Uterine contractions were not originally picked up on the monitor, but she was having occasional decelerations with a NR tracing. BPP was 8/10. She received care at [facility] since 13 weeks and co-managed by [facility] for Chronic hypertension - on Labetolol 200mg BID, Shortened cervix - on Progesterone 200mg and history of DVT - on Lovenox 40mg. She was started on IV Magnesium sulfate, IV Ampicillin and IM Steroids, but continued zaheer with decelerations. The IV Magnesium was discontinued and labor progressed until she developed a non-reassuring tracing. She was delivered by C Section and tolerated the procedure well. By POD #2 she was tolerating a reg diet without nausea or vomiting, ambulating and voiding without difficulty. Her H/H was 6.3/19.6, but she was asymptomatic and BP's remained stable on Labetolol 200mg BID. She will therefore be discharged to home today in stable condition. Condition at discharge: Good Disposition: [id number] TO HOME OR SELFCARE - Discharge Diagnoses (1) 33 weeks gestation of Status: Resolved (2) contractions Status: Resolved (3) PIH ( induced hypertension) Status: Resolved Qualifiers: Trimester: third trimester Qualified Code(s): O13.3 - Gestational [-induced] hypertension without significant proteinuria, third trimester (4) History of DVT (deep vein thrombosis) Status: Chronic (5) Status post Status: Resolved Plan - Discharge Medications Prescriptions: Ferrous Sulfate [Feosol 325 MG tab] 325 mg PO BID #60 tablet Labetalol [Labetalol 200mg TAB] 200 mg PO BID #60 tablet Enoxaparin [Lovenox] 40 mg SUB-Q QDAY #30 syringe Ibuprofen [Motrin 800 MG tab] 800 mg PO Q6H PRN #30 tablet PRN Reason: Pain, Mild (1-3) oxyCODONE /ACETAMINOPHEN [Percocet 5/325 mg] 1 tab PO Q6H PRN #30 tablet PRN Reason: Pain, Moderate (4-6) Vit-Fe Fumar-FA [ Vitamin] 1 each PO QDAY #30 tablet - Provider Discharge Summary Activity: routine, no sex for 6 weeks, no heavy lifting 4 weeks, no strenuous exercise Diet: routine Instructions: routine Additional instructions: [] Smoking cessation referral if applicable(refer to patient education folder for contact #) [] Refer to [facility] Booklet Call your doctor immediately for: * Fever > 100.5 * Heavy vaginal bleeding ( >1 pad per hour) * Severe persistent headache * Shortness of breath * Reddened, hot, painful area to leg or breast * Drainage or odor from incision. * Keep incision clean and dry at all times and follow doctor's instructions regarding bathing/showering - Follow up plan Follow up: DONNA SHERWOOD MD [Primary Care Provider] - 14 Days
== END 2019-07-17 15:12 | disposition home or self-care (01) | DRG 765 ==
LOC: TRG 09:33 → LD 13:52 → TRG 14:37 → OB 07-15 20:45
PROVIDERS: ADMIT Obstetrics & Gynecology; ATTEND Obstetrics & Gynecology
PROC: 10D00Z1 Extraction of Products of Conception, Low, Open Approach (ICD-10-PCS; principal; 2019-07-15)
DX: O76 Abnormality in fetal heart rate and rhythm complicating labor and delivery (principal); O60.14X0 Preterm labor third trimester with preterm delivery third trimester, not applicable or unspecified; O13.4 Gestational [pregnancy-induced] hypertension without significant proteinuria, complicating childbirth; O90.81 Anemia of the puerperium; Z3A.33 33 weeks gestation of pregnancy; Z37.0 Single live birth
CPT/HCPCS: 36415; 59025; 76815; 76819; 80053; 81001; 82731; 83735; 85014; 85018; 85025; 86592; 86706; 88307; G0378; C9250; J0290; J0690; J0702; J1170; J1650; J1885; J2405; J2590; J2765; J3475; J3490; J7120; J7121

== ENCOUNTER 2021-07-08 09:18 | Emergency (ER) | payer MEDICAID ==
[2021-07-08 09:30] VITALS: BP 153/78
[2021-07-08 10:20] LABS: Bilirubin,Urine NEG (Negative); Blood,Urine NEG (Negative); Color,Urine Yellow (Yellow); Mucus,Urine FEW /HPF; RBC,Urine < 1.0 /HPF (0.0-6.0); Urobilinogen,Urine < 2.0 mg/dL (<2.0)
[2021-07-08 10:29] LABS: WBC,Urine < 1.0 /HPF (0.0-6.0)
[2021-07-08 10:32] LABS: HCG Qualitative,Urine Negative (Negative)
--- NOTE | 2021-07-08 11:02 | Emergency Department Report ---
ED General Adult HPI - General Chief complaint: Urogenital-Female Stated complaint: BODYACHES Time Seen by Provider: 07/08/21 10:49 Source: patient Mode of arrival: Ambulatory Limitations: No Limitations - History of Present Illness Initial comments: Patient is a 31-year-old female who presents emergency room with complaints of body aches and lower back discomfort that began a week ago. She states that her last menstrual cycle was 06/12/2021. She states that she believes she is . Patient has not been tested for COVID-19 but she continues to say "I dont have Covid19." She denies any fever, loss of sense of smell or taste, nausea, vomiting, diarrhea, vaginal bleeding, vaginal itching, vaginal burning, pelvic pain, urinary symptoms, cough, shortness of breath, chest pain. she denies any muscle weakness or dark urine. she denies any trauma or recent physical exercise. No past medical history. No allergies medications. she states she really just presented to have a test. she denies any concerns for STDs. she states she just had a pap smear 6 months ago and reports it was normal. - Related Data Home Medications Medication Instructions Recorded Confirmed Last Taken Progesterone, Micronized 1 cap VG HS 07/14/19 07/14/19 07/13/19 21:00 [Progesterone] 1 labetaloL [Labetalol 200mg TAB] 200 mg PO BID 07/14/19 07/14/19 07/14/19 07:30 1 Previous Rx's Medication Instructions Recorded Last Taken Type Enoxaparin 40 mg SUB-Q QDAY #30 syringe 07/17/19 Unknown Rx Ferrous Sulfate [Feosol 325 MG tab] 325 mg PO BID #60 tablet 07/17/19 Unknown Rx Ibuprofen [Motrin 800 MG tab] 800 mg PO Q6H PRN #30 tablet 07/17/19 Unknown Rx Vit-Fe Fumar-FA [ 1 each PO QDAY #30 tablet 07/17/19 Unknown Rx Vitamin] labetaloL [Labetalol 200mg TAB] 200 mg PO BID #60 tablet 07/17/19 Unknown Rx oxyCODONE /ACETAMINOPHEN [Percocet 1 tab PO Q6H PRN #30 tablet 07/17/19 Unknown Rx 5/325 mg] Allergies Allergy/AdvReac Type Severity Reaction Status Date / Time No Known Allergies Allergy Verified 08/30/21 09:22 ED Review of Systems ROS: Stated complaint: BODYACHES Other details as noted in HPI Comment: All other systems reviewed and negative ED Past Medical Hx - Past Medical History Hx Hypertension: Yes Hx Congestive Heart Failure: No Hx Diabetes: No Hx Asthma: No Hx COPD: No - Medications Home Medications: Home Medications Medication Instructions Recorded Confirmed Last Taken Type Progesterone, Micronized 1 cap VG HS 07/14/19 07/14/19 07/13/19 21:00 History [Progesterone] 1 labetaloL [Labetalol 200mg TAB] 200 mg PO BID 07/14/19 07/14/19 07/14/19 07:30 History 1 Enoxaparin 40 mg SUB-Q QDAY #30 syringe 07/17/19 Unknown Rx Ferrous Sulfate [Feosol 325 MG tab] 325 mg PO BID #60 tablet 07/17/19 Unknown Rx Ibuprofen [Motrin 800 MG tab] 800 mg PO Q6H PRN #30 tablet 07/17/19 Unknown Rx Vit-Fe Fumar-FA [ 1 each PO QDAY #30 tablet 07/17/19 Unknown Rx Vitamin] labetaloL [Labetalol 200mg TAB] 200 mg PO BID #60 tablet 07/17/19 Unknown Rx oxyCODONE /ACETAMINOPHEN [Percocet 1 tab PO Q6H PRN #30 tablet 07/17/19 Unknown Rx 5/325 mg] ED Physical Exam - General Limitations: No Limitations General appearance: alert, in no apparent distress - Head Head exam: Present: atraumatic, normocephalic - Eye Eye exam: Present: normal appearance - ENT ENT exam: Present: mucous membranes moist - Respiratory Respiratory exam: Present: normal lung sounds bilaterally. Absent: respiratory distress, wheezes, rales, rhonchi, stridor, chest wall tenderness, accessory muscle use, decreased breath sounds, prolonged expiratory - Cardiovascular Cardiovascular Exam: Present: regular rate, normal rhythm, normal heart sounds. Absent: systolic murmur, diastolic murmur, rubs, gallop - Neurological Exam Neurological exam: Present: alert, oriented X3 - Psychiatric Psychiatric exam: Present: normal affect, normal mood - Skin Skin exam: Present: warm, dry, intact ED Course Vital Signs 07/08/21 09:25 Temperature 98.6 F Pulse Rate 96 H Respiratory 18 Rate Blood Pressure 153/78 O2 Sat by Pulse 100 Oximetry ED Medical Decision Making - Medical Decision Making Patient is a 31-year-old female who presents emergency room with complaints of body aches and lower back discomfort that began a week ago. She states that her last menstrual cycle was 06/12/2021. She states that she believes she is . Patient has not been tested for COVID-19 but she continues to say "I dont have Covid19." She denies any fever, loss of sense of smell or taste, nausea, vomiting, diarrhea, vaginal bleeding, vaginal itching, vaginal burning, pelvic pain, urinary symptoms, cough, shortness of breath, chest pain. she denies any muscle weakness or dark urine. she denies any trauma or recent physical exercise. No past medical history. No allergies medications. she states she really just presented to have a test. she denies any concerns for STDs. she states she just had a pap smear 6 months ago and reports it was normal. Vitals with mildly elevated blood pressure, otherwise stable. Discussed mild elevation in blood pressure with patient, discussed the importance of primary care follow-up, discussed lifestyle modifications and discussed keeping a blood pressure log. Patient has no abnormality on physical examination as documented in chart. UA without evidence of UTI or hematuria. Urine is negative. advised pt Please follow-up with your [facility] DIRECTOR. Please follow-up with your primary care doctor. Increase your water intake. Eat a low-sodium diet. Incorporate 30 to 60 minutes of daily exercise. May take Tylenol as needed for body aches/back pain. Return to emergency room for any new or worsening symptoms. Critical care attestation.: If time is entered above; I have spent that time in minutes in the direct care of this critically ill patient, excluding procedure time. ED Disposition Clinical Impression: Body aches, Elevated blood pressure reading Low back pain Qualifiers: Chronicity: acute Back pain laterality: unspecified Sciatica presence: without sciatica Qualified Code(s): M54.5 - Low back pain Disposition: HOME / SELF CARE / HOMELESS Is pt being admited?: No Does the pt Need Aspirin: No Condition: Stable Instructions: Low-Sodium Eating Plan Additional Instructions: Please follow-up with your [facility]. Please follow-up with your primary care doctor. Increase your water intake. Eat a low-sodium diet. Incorporate 30 to 60 minutes of daily exercise. May take Tylenol as needed for body aches/back pain. Return to emergency room for any new or worsening symptoms. 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
== END 2021-07-08 17:40 | disposition home or self-care (01) ==
LOC: ED 09:18
DX: M54.5 Low back pain (principal); I10 Essential (primary) hypertension
CPT/HCPCS: 81001; 81025; 99283